=== PATIENT | female | born 1990 | race Caucasian/White ===

== ENCOUNTER 2017-01-07 17:10 | Emergency (ER) | payer OTHER ==
[2017-01-07] MEDS ORDERED: Albuterol-Ipratrop 3 mg / 0.5 (3 ml) UD ONE (17:30)
--- NOTE | 2017-01-07 17:33 | C.PDOC ---
History Of Present Illness Patient is a 26 year old female with a history of bronchitis and asthma who presents to the ER with a complaint of persistent coughing for the past 3 days. Patient states she feels like it is hard to breathe with constant cough, keeps her up at night, and reports a subjective fever. Patient states she treated herself at home with a nebulizer, and Nyquil with no results. Patient notes she is an occasional smoker, LMP was last week. Denies any nausea, vomiting, or chest pain. Time Seen by Provider: 01/07/17 17:23 Chief Complaint (Nursing): Cough, Cold, Congestion History Per: Patient History/Exam Limitations: no limitations Onset/Duration Of Symptoms: Days (3) Current Symptoms Are (Timing): Still Present Associated Symptoms: Fever (Subjective), Cough, Sputum (Occasional). denies: Nausea, Vomiting Past Medical History Reviewed: Historical Data, Nursing Documentation, Vital Signs Vital Signs: Last Vital Signs Temp 98.1 F 01/07/17 17:20 Pulse 86 01/07/17 17:20 Resp 18 01/07/17 17:20 BP 137/84 01/07/17 17:20 Pulse Ox 100 01/07/17 18:19 - Medical History PMH: Asthma Surgical History: No Surg Hx Family History: States: Unknown Family Hx - Social History Hx Tobacco Use: Yes Hx Alcohol Use: Yes Hx Substance Use: No - Immunization History Hx Tetanus Toxoid Vaccination: No Hx Influenza Vaccination: No Hx Pneumococcal Vaccination: No Review Of Systems Constitutional: Positive for: Fever (Subjective) ENT: Negative for: Ear Pain, Nose Congestion, Throat Pain Cardiovascular: Negative for: Chest Pain Respiratory: Positive for: Cough, Sputum. Negative for: Shortness of Breath, Wheezing Gastrointestinal: Negative for: Nausea, Vomiting Skin: Negative for: Rash Neurological: Negative for: Headache, Dizziness Physical Exam - Physical Exam Appears: Non-toxic, No Acute Distress Skin: Normal Color, Warm, Dry Head: Atraumatic, Normacephalic Eye(s): bilateral: Normal Inspection, EOMI Ear(s): Bilateral: Normal (no erythema) Nose: Normal, No Flaring Oral Mucosa: Moist Throat: Normal, No Erythema, No Exudate Neck: Normal ROM Chest: Symmetrical, No Tenderness Cardiovascular: Rhythm Regular, No Murmur Respiratory: No Accessory Muscle Use, No Rales, No Rhonchi, No Wheezing Extremity: Bilateral: Atraumatic, Normal ROM Neurological/Psych: Oriented x3, Normal Speech ED Course And Treatment O2 Sat by Pulse Oximetry: 100 (Room air) Pulse Ox Interpretation: Normal Medical Decision Making Medical Decision Making: Impression: 26 year old female with a persistent cough. Plan: * Nebulizer treatment: duonebs * Prednisone PO Progress: Upon reevaluation patient remained afebrile and in no acute respiratory distress. Lungs are clear bilaterally with good air entry and oxygen saturation is adequate. Patient feels comfortable going home and will be discharged. Rx given. Advise follow up with PMD or clinic Disposition Counseled Patient/Family Regarding: Diagnosis, Need For Followup, Rx Given - Disposition Referrals: [facility] [Outside] [facility] [Outside] [facility] [Outside] Disposition: HOME/ ROUTINE Disposition Time: 18:17 Condition: IMPROVED Additional Instructions: Follow up with your primary medical doctor or clinic in 2-5 days for further evaluation. Take medications as prescribed. Return to the emergency department at any time if symptoms persist or worsen. Prescriptions: Prednisone 50 mg PO DAILY #5 tablet Promethazine HCl/Codeine [Prometh-Codein 6.25-10 mg/5 ml] 5 ml PO Q8 PRN #150 ml PRN Reason: Cough Albuterol HFA [Ventolin HFA 90 mcg/actuation (8 g)] 1 puff IH Q4 #1 puff Instructions: Asthma (DC) - POA Present On Arrival: None - Clinical Impression Clinical Impression: Upper respiratory infection, Asthma exacerbation - Scribe Statement The provider has reviewed the documentation as recorded by the Scriblisa Mchugh All medical record entries made by the Lesaiblisa were at my direction and personally dictated by me. I have reviewed the chart and agree that the record accurately reflects my personal performance of the history, physical exam, medical decision making, and the department course for this patient. I have also personally directed, reviewed, and agree with the discharge instructions and disposition.
[2017-01-07] MEDS: Albuterol-Ipratrop 3 mg / 0.5 (3 ml) UD IH SCH ×2 (17:35→17:42)
[2017-01-07 18:46] VITALS: BP 127/77; PULSE 83; RESP 19; TEMP 98.7; O2SAT 98
== END 2017-01-07 18:46 | disposition home or self-care (01) ==
LOC: C.ER 17:10
DX: J06.9 Acute upper respiratory infection, unspecified (principal); J45.901 Unspecified asthma with (acute) exacerbation; Z72.0 Tobacco use